=== PATIENT | female | born 1930 | race African-American/Black ===

== ENCOUNTER 2017-02-24 19:03 | Inpatient (IN) | payer MEDICARE, BC ==
[~2017-02-24] VITALS: Ht 162.6 cm; Wt 90.7 kg
[~2017-02-24 19:03] MED LIST: AZIL40TA PO
[2017-02-24] MEDS ORDERED: MECLIZINE 25MG TABLET PO ONE (19:30)
[2017-02-24] MEDS ORDERED: ASPIRIN 81MG TABLET PO ONE (19:30)
[2017-02-24 19:47] LABS: INR 1.1; PARTIAL THROMBOPLASTIN TIME 25.4 sec (23.4-31.0); PROTHROMBIN TIME 11.6 sec (9.4-11.6)
[2017-02-24 19:51] LABS: BASOPHILS % 0.3 % (0.0-2.0); EOSINOPHILS % 0.8 % (0.0-5.0); HEMATOCRIT. 41.8 % (36.0-48.0); HEMOGLOBIN. 14.1 g/dL (12.0-16.0); LYMPHOCYTES % 25.4 % (20.0-50.0); MEAN CORPUSCULAR HEMOGLOBIN 32.3 pg (28.0-32.0); MEAN CORPUSCULAR VOLUME 95.4 fL (81.0-99.0); MEAN PLATELET VOLUME 10.6 fl (7.4-10.4); MONOCYTES % 7.1 % (2.0-8.0); NEUTROPHILS % 66.4 % (40.0-76.0); PLATELET 187 x1000/uL (130-400); RED BLOOD CELL COUNT 4.38 mill/uL (4.2-5.4); RED CELL DISTRIBUTION WIDTH 12.9 % (11.6-14.6)
[2017-02-24 19:57] LABS: CARBON DIOXIDE 28 mEq/L (21-32); CHLORIDE 106 mEq/L (98-107); ETHANOL BLOOD < 10 mg/dL; TROPONIN I < 0.02 ng/mL (0.00-0.04)
[2017-02-24 20:44] LABS: CLARITY URINE CLEAR (CLEAR); COLOR URINE YELLOW (YELLOW); KETONES URINE TRACE (NEGATIVE); LEUKOCYTE ESTERASE URINE 1+ (NEGATIVE); NITRITE URINE NEGATIVE (NEGATIVE); OCCULT BLOOD URINE NEGATIVE (NEGATIVE); PROTEIN URINE NEGATIVE (NEGATIVE); SPECIFIC GRAVITY URINE 1.015 (1.005-1.030); UROBILINOGEN URINE 0.2 E.U./dL (0.2-1.0)
[2017-02-24 21:00] LABS: *AMPHETAMINES SCREEN URINE NEGATIVE (NEGATIVE); *BARBITURATES SCREEN URINE NEGATIVE (NEGATIVE); *BENZODIAZEPINES SCREEN URINE NEGATIVE (NEGATIVE); *COCAINE SCREEN URINE NEGATIVE (NEGATIVE); CANNABINOID URINE SCREEN NEGATIVE (NEGATIVE); METHADONE URINE SCREEN NEGATIVE (NEGATIVE); OPIATES URINE SCREEN NEGATIVE (NEGATIVE); PHENCYCLIDINE URINE SCREEN NEGATIVE (NEGATIVE)
[2017-02-25] VITALS (7 sets, daily range): BP systolic 137–174; BP diastolic 69–83
[2017-02-25] MEDS ORDERED: CEFTRIAXONE 1 G PREMIX 50 ML IV NR (00:15)
[2017-02-25] MEDS ORDERED: MECLIZINE 25MG TABLET PO PRN (03:15)
[2017-02-25] MEDS ORDERED: ONDANSETRON HCL 4MG/2ML VIAL IV PRN (03:15)
[2017-02-25] MEDS ORDERED: DOCUSATE SODIUM 100MG CAPSULE PO PRN (03:15)
[2017-02-25] MEDS ORDERED: GUAIFENESIN 200MG/10ML SUGAR FREE UDC PO PRN (03:15)
[2017-02-25] MEDS ORDERED: OLME20TA14 PO (04:14)
[2017-02-25] MEDS ORDERED: CYAN10009 PO (04:14)
[2017-02-25] MEDS ORDERED: CILO100T PO (04:14)
[2017-02-25] MEDS ORDERED: CLON0.1T PO (04:14)
[2017-02-25] MEDS: ACETAMINOPHEN 325MG TABLET PO PRN ×3 (04:56→23:42)
[2017-02-25] MEDS: CLONIDINE 0.1MG TABLET PO PRN (04:56)
[2017-02-25 07:46] LABS: CHLORIDE 109 mEq/L (98-107)
[2017-02-25 07:58] LABS: CARBON DIOXIDE 21 mEq/L (21-32); CREATINE KINASE 91 IU/L (26-192); TROPONIN I < 0.02 ng/mL (0.00-0.04)
[2017-02-25] MEDS: AMLODIPINE 10MG TABLET PO SCH (08:54)
[2017-02-25] MEDS: ASPIRIN 81MG EC TABLET PO SCH (08:54)
[2017-02-25] MEDS: ENOXAPARIN 30MG/0.3ML SYR SUBCUT SCH ×2 (08:54→21:00)
[2017-02-25] MEDS: DOCUSATE SODIUM 100MG CAPSULE PO SCH ×2 (13:23→17:21)
[2017-02-25] MEDS: CEFTRIAXONE 1 G PREMIX 50 ML IV SCH (14:00)
[2017-02-25 16:39] LABS: CREATINE KINASE 110 IU/L (26-192); TROPONIN I < 0.02 ng/mL (0.00-0.04)
[2017-02-25] MEDS ORDERED: MAGNESIUM OXIDE 400MG TABLET PO NR (17:09)
[2017-02-26] VITALS: BP 174/85
[2017-02-26 04:00] VITALS: BP 177/81
[2017-02-26] MEDS: CLONIDINE 0.1MG TABLET PO PRN (05:36)
[2017-02-26 06:32] LABS: BASOPHILS % 0.7 % (0.0-2.0); EOSINOPHILS % 1.4 % (0.0-5.0); HEMOGLOBIN. 13.4 g/dL (12.0-16.0); LYMPHOCYTES % 27.1 % (20.0-50.0); MEAN CORPUSCULAR HEMOGLOBIN 31.8 pg (28.0-32.0); MEAN CORPUSCULAR VOLUME 95.1 fL (81.0-99.0); MEAN PLATELET VOLUME 10.7 fl (7.4-10.4); MONOCYTES % 7.7 % (2.0-8.0); NEUTROPHILS % 63.1 % (40.0-76.0); PLATELET 169 x1000/uL (130-400); RED BLOOD CELL COUNT 4.21 mill/uL (4.2-5.4); RED CELL DISTRIBUTION WIDTH 12.9 % (11.6-14.6)
[2017-02-26 08:00] VITALS: BP 143/75
[2017-02-26] MEDS: ACETAMINOPHEN 325MG TABLET PO PRN (08:52)
[2017-02-26] MEDS: ENOXAPARIN 30MG/0.3ML SYR SUBCUT SCH (08:52)
[2017-02-26] MEDS: AMLODIPINE 10MG TABLET PO SCH (08:52)
[2017-02-26] MEDS: ASPIRIN 81MG EC TABLET PO SCH (08:52)
[2017-02-26] MEDS: DOCUSATE SODIUM 100MG CAPSULE PO SCH (09:00)
[2017-02-26 11:25] VITALS: BP 143/75
[2017-02-26 11:30] LABS: T4 FREE 1.14 ng/dL (0.76-1.46)
[2017-02-26] MEDS: CEFTRIAXONE 1 G PREMIX 50 ML IV SCH (11:47)
[2017-02-26 12:00] VITALS: BP 161/75
== END 2017-02-26 14:30 | disposition home or self-care (01) | DRG 690 ==
LOC: ER 19:35 → 6WST 02-25 01:14 → EDBEDREQTM 02-25 01:37 → EDBEDREQ 02-25 01:37 → EDBEDREQDT 02-25 01:37 → ENRESERV 02-25 01:46 → SUPCPDRO 02-25 03:13
PROVIDERS: ADMIT Hospitalist; ATTEND Hospitalist
DX: N39.0 Urinary tract infection, site not specified (principal); E78.00 Pure hypercholesterolemia, unspecified; E78.5 Hyperlipidemia, unspecified; G89.29 Other chronic pain; I10 Essential (primary) hypertension; I25.10 Atherosclerotic heart disease of native coronary artery without angina pectoris; Z96.649 Presence of unspecified artificial hip joint; M25.552 Pain in left hip; Z88.2 Allergy status to sulfonamides; Z95.0 Presence of cardiac pacemaker; Z91.041 Radiographic dye allergy status
CPT/HCPCS: 36415; 70450; 71010; 80048; 80053; 80061; 80305; 81001; 82550; 83735; 83880; 84439; 84443; 84484; 85025; 85610; 85730; 87086; 87186; 87804; 93005; 93970; 96365; 99285; A6261; G0482; J0696; J1650; J7040; J8597

== ENCOUNTER 2018-07-03 11:21 | Inpatient (IN) | payer MEDICARE, BC ==
[~2018-07-03] VITALS: Ht 170.2 cm; Wt 87.2 kg
[~2018-07-03 11:21] MED LIST changes: +BENADRYL; +CILO100T PO; +CLON0.1T PO; +CYAN10009 PO; +NITROFURANTOIN; +OLME20TA14 PO
[2018-07-03 12:41] VITALS: BP 186/82
[2018-07-03] MEDS ORDERED: FURO-151 MT (13:04)
[2018-07-03] MEDS ORDERED: TYLENOL # 3 PO (13:04)
[2018-07-03] MEDS ORDERED: CLONIDINE 0.2MG TABLET PO PRN ×2 (14:00)
[2018-07-03] MEDS ORDERED: TRAMADOL 50MG TABLET PO PRN (14:00)
[2018-07-03 15:38] LABS: CLARITY URINE CLEAR (CLEAR); COLOR URINE YELLOW (YELLOW); KETONES URINE NEGATIVE (NEGATIVE); LEUKOCYTE ESTERASE URINE NEGATIVE (NEGATIVE); NITRITE URINE NEGATIVE (NEGATIVE); OCCULT BLOOD URINE NEGATIVE (NEGATIVE); PROTEIN URINE NEGATIVE (NEGATIVE); SPECIFIC GRAVITY URINE 1.012 (1.005-1.030); UROBILINOGEN URINE 0.2 E.U./dL (0.2-1.0)
[2018-07-03 15:43] LABS: BASOPHILS % 0.7 % (0.0-2.0); CHLORIDE 110 mEq/L (98-107); EOSINOPHILS % 0.9 % (0.0-5.0); HEMATOCRIT. 39.2 % (36.0-48.0); LYMPHOCYTES % 30.5 % (20.0-50.0); MEAN CORPUSCULAR HEMOGLOBIN 31.6 pg (28.0-32.0); MEAN CORPUSCULAR VOLUME 95.4 fL (81.0-99.0); MEAN PLATELET VOLUME 10.2 fl (7.4-10.4); MONOCYTES % 7.3 % (2.0-8.0); NEUTROPHILS % 60.6 % (40.0-76.0); PLATELET 172 x1000/uL (130-400); RED BLOOD CELL COUNT 4.11 mill/uL (4.2-5.4); RED CELL DISTRIBUTION WIDTH 13.4 % (11.6-14.6)
[2018-07-03 16:00] VITALS: BP 151/78
[2018-07-03] MEDS ORDERED: VANCOMYCIN 1 G PREMIX 200 ML IV SCH (16:00)
[2018-07-03] MEDS: DOCUSATE SODIUM 100MG CAPSULE PO SCH (16:22)
[2018-07-03] MEDS: ASPIRIN 81MG EC TABLET PO SCH (16:22)
[2018-07-03] MEDS: CLONIDINE 0.1MG TABLET PO PRN (16:22)
[2018-07-03] MEDS: FUROSEMIDE 40MG/4ML VIAL IVP SCH (16:22)
[2018-07-03] MEDS: LOSARTAN POTASSIUM 25 MG TABLET PO SCH (16:30)
[2018-07-03] MEDS ORDERED: MAGNESIUM/ALUMINUM HYDROXIDE/SIMETHICONE 30ML UDC PO PRN (17:30)
[2018-07-03] MEDS ORDERED: CLONIDINE 0.1MG TABLET PO PRN (17:30)
[2018-07-03] MEDS ORDERED: GUAIFENESIN 200MG/10ML SUGAR FREE UDC PO PRN (17:30)
[2018-07-03] MEDS ORDERED: ACETAMINOPHEN 325MG TABLET PO PRN (17:30)
[2018-07-03] MEDS ORDERED: DOCUSATE SODIUM 100MG CAPSULE PO PRN (17:30)
[2018-07-03] MEDS ORDERED: ONDANSETRON HCL 4MG/2ML INJ IV PRN (17:30)
[2018-07-03] MEDS ORDERED: DIPHENHYDRAMINE 50MG/ML VIAL IV PRN (17:30)
[2018-07-03 18:00] VITALS: BP 148/84
[2018-07-03] MEDS ORDERED: ACETAMINOPHEN WITH CODEINE 300/60MG TABLET PO NR (18:00)
[2018-07-03] MEDS ORDERED: LEVOFLOXACIN 500MG PREMIX 100 ML IV NR (20:00)
[2018-07-03 20:21] VITALS: BP 166/77
[2018-07-03] MEDS: HYDROCODONE/ACETAMINOPHEN 5/325MG TABLET PO PRN (20:30)
[2018-07-03 22:00] VITALS: BP 128/54
[2018-07-04] VITALS (14 sets, daily range): BP systolic 122–176; BP diastolic 53–88
[2018-07-04] MEDS: HYDROCODONE/ACETAMINOPHEN 5/325MG TABLET PO PRN ×3 (02:29→23:18)
[2018-07-04 05:44] LABS: BASOPHILS % 0.4 % (0.0-2.0); EOSINOPHILS % 1.5 % (0.0-5.0); HEMATOCRIT. 34.3 % (36.0-48.0); HEMOGLOBIN. 11.5 g/dL (12.0-16.0); LYMPHOCYTES % 35.6 % (20.0-50.0); MEAN CORPUSCULAR HEMOGLOBIN 31.8 pg (28.0-32.0); MEAN CORPUSCULAR VOLUME 94.6 fL (81.0-99.0); MONOCYTES % 7.6 % (2.0-8.0); NEUTROPHILS % 54.9 % (40.0-76.0); PLATELET 162 x1000/uL (130-400); RED BLOOD CELL COUNT 3.63 mill/uL (4.2-5.4); RED CELL DISTRIBUTION WIDTH 13.1 % (11.6-14.6)
[2018-07-04 06:15] LABS: CHLORIDE 110 mEq/L (98-107)
[2018-07-04] MEDS: DOCUSATE SODIUM 100MG CAPSULE PO SCH ×2 (08:59→17:00)
[2018-07-04] MEDS: FUROSEMIDE 40MG/4ML VIAL IVP SCH (08:59)
[2018-07-04] MEDS: ASPIRIN 81MG EC TABLET PO SCH (09:00)
[2018-07-04] MEDS: LOSARTAN POTASSIUM 25 MG TABLET PO SCH ×2 (09:01→17:00)
[2018-07-04] MEDS ORDERED: ENOXAPARIN 30MG/0.3ML SYR SUBCUT SCH (12:00)
[2018-07-04] MEDS: VANCOMYCIN 1 G PREMIX 200 ML IV SCH (12:42)
[2018-07-04] MEDS ORDERED: LACTULOSE 20G/30ML UDC PO PRN (17:30)
[2018-07-04] MEDS ORDERED: LACTULOSE 20G/30ML UDC PO NR (21:00)
[2018-07-04] MEDS: LEVOFLOXACIN 250MG PREMIX 50 ML IV SCH (21:52)
[2018-07-05] VITALS (18 sets, daily range): BP systolic 123–176; BP diastolic 52–85
[2018-07-05] MEDS: CLONIDINE 0.1MG TABLET PO PRN (05:32)
[2018-07-05] MEDS: HYDROCODONE/ACETAMINOPHEN 5/325MG TABLET PO PRN ×4 (05:37→21:59)
[2018-07-05 06:48] LABS: BASOPHILS % 0.2 % (0.0-2.0); EOSINOPHILS % 1.7 % (0.0-5.0); HEMATOCRIT. 37.1 % (36.0-48.0); HEMOGLOBIN. 12.5 g/dL (12.0-16.0); LYMPHOCYTES % 30.6 % (20.0-50.0); MEAN CORPUSCULAR HEMOGLOBIN 32.1 pg (28.0-32.0); MEAN PLATELET VOLUME 10.4 fl (7.4-10.4); MONOCYTES % 8.2 % (2.0-8.0); NEUTROPHILS % 59.3 % (40.0-76.0); PLATELET 159 x1000/uL (130-400); RED CELL DISTRIBUTION WIDTH 13.3 % (11.6-14.6)
[2018-07-05 07:33] LABS: CHLORIDE 105 mEq/L (98-107)
[2018-07-05] MEDS: FUROSEMIDE 40MG/4ML VIAL IVP SCH (08:16)
[2018-07-05] MEDS: ENOXAPARIN 40MG/0.4ML SYR SUBCUT SCH (08:17)
[2018-07-05] MEDS: ASPIRIN 81MG EC TABLET PO SCH (08:17)
[2018-07-05] MEDS: POLYETHYLENE GLYCOL 3350 (17GM) 1 DOSE PACK PO SCH ×2 (08:17→08:27)
[2018-07-05] MEDS: DOCUSATE SODIUM 100MG CAPSULE PO SCH ×2 (08:17→16:14)
[2018-07-05] MEDS: LOSARTAN POTASSIUM 25 MG TABLET PO SCH (08:17)
[2018-07-05] MEDS ORDERED: DIPHENHYDRAMINE 25MG CAPSULE PO PRN (10:30)
[2018-07-05] MEDS: VANCOMYCIN 1 G PREMIX 200 ML IV SCH (12:37)
[2018-07-05] MEDS: LEVOFLOXACIN 250MG PREMIX 50 ML IV SCH (20:01)
[2018-07-05] MEDS: LOSARTAN POTASSIUM 50 MG TABLET PO SCH (22:05)
[2018-07-06] VITALS (15 sets, daily range): BP systolic 118–172; BP diastolic 36–98
[2018-07-06] MEDS: HYDROCODONE/ACETAMINOPHEN 5/325MG TABLET PO PRN ×2 (03:28→08:32)
[2018-07-06 06:21] LABS: BASOPHILS % 0.3 % (0.0-2.0); EOSINOPHILS % 1.4 % (0.0-5.0); HEMATOCRIT. 36.7 % (36.0-48.0); HEMOGLOBIN. 12.4 g/dL (12.0-16.0); LYMPHOCYTES % 25.3 % (20.0-50.0); MEAN CORPUSCULAR HEMOGLOBIN 32.3 pg (28.0-32.0); MEAN CORPUSCULAR VOLUME 95.5 fL (81.0-99.0); MEAN PLATELET VOLUME 10.5 fl (7.4-10.4); MONOCYTES % 8.8 % (2.0-8.0); NEUTROPHILS % 64.2 % (40.0-76.0); PLATELET 158 x1000/uL (130-400); RED BLOOD CELL COUNT 3.84 mill/uL (4.2-5.4); RED CELL DISTRIBUTION WIDTH 13.3 % (11.6-14.6)
[2018-07-06 07:46] LABS: CHLORIDE 105 mEq/L (98-107)
[2018-07-06] MEDS: ENOXAPARIN 40MG/0.4ML SYR SUBCUT SCH (08:29)
[2018-07-06] MEDS: LOSARTAN POTASSIUM 50 MG TABLET PO SCH (08:30)
[2018-07-06] MEDS: POLYETHYLENE GLYCOL 3350 (17GM) 1 DOSE PACK PO SCH ×2 (08:30→09:00)
[2018-07-06] MEDS: DOCUSATE SODIUM 100MG CAPSULE PO SCH ×2 (08:31→16:17)
[2018-07-06] MEDS: ASPIRIN 81MG EC TABLET PO SCH (08:33)
[2018-07-06] MEDS ORDERED: VANCOMYCIN 750 MG PREMIX 150 ML IV SCH (10:00)
[2018-07-06] MEDS: FUROSEMIDE 40MG/4ML VIAL IVP SCH (10:03)
[2018-07-06] MEDS ORDERED: HYDROCODONE/APAP 7.5/325MG 1 TAB TABLET PO PRN ×2 (10:45→16:45)
[2018-07-06] MEDS ORDERED: ZOLPIDEM TARTRATE 5MG TABLET PO PRN (10:45)
[2018-07-06] MEDS ORDERED: LEVOFLOXACIN 250MG TABLET PO SCH (20:00)
== END 2018-07-06 18:23 | DRG 603 ==
LOC: 3WST 11:21
PROVIDERS: ADMIT Hospitalist; ATTEND Hospitalist
DX: L03.116 Cellulitis of left lower limb (principal); E44.1 Mild protein-calorie malnutrition; L03.115 Cellulitis of right lower limb; I48.0 Paroxysmal atrial fibrillation; I73.9 Peripheral vascular disease, unspecified; I49.5 Sick sinus syndrome; I65.22 Occlusion and stenosis of left carotid artery; I10 Essential (primary) hypertension; I89.0 Lymphedema, not elsewhere classified; I25.10 Atherosclerotic heart disease of native coronary artery without angina pectoris; K59.00 Constipation, unspecified; Z95.0 Presence of cardiac pacemaker; Z68.30 Body mass index [BMI] 30.0-30.9, adult
CPT/HCPCS: 36415; 71045; 74018; 80048; 80202; 83735; 84443; 93005; 93970; 97162; J1650; J1940; J1956; J3370; J7050; Q0163; A4315

== ENCOUNTER 2018-07-06 18:30 | Inpatient (IN) | payer MEDICARE, BC ==
[~2018-07-06] VITALS: Ht 170.2 cm; Wt 87.2 kg
[~2018-07-06 18:30] MED LIST changes: -AZIL40TA PO; -BENADRYL; -CILO100T PO; -CYAN10009 PO; +FURO-151 MT; -NITROFURANTOIN; +TYLENOL # 3 PO
[2018-07-06 20:00] VITALS: BP 165/73
[2018-07-06] MEDS ORDERED: DIPHENHYDRAMINE 50MG/ML VIAL IV PRN (20:15)
[2018-07-06] MEDS ORDERED: DIPHENHYDRAMINE 25MG CAPSULE PO PRN (20:15)
[2018-07-06] MEDS ORDERED: CLONIDINE 0.2MG TABLET PO PRN (20:15)
[2018-07-06] MEDS ORDERED: CLONIDINE 0.1MG TABLET PO PRN (20:15)
[2018-07-06] MEDS ORDERED: GUAIFENESIN 200MG/10ML SUGAR FREE UDC PO PRN (20:15)
[2018-07-06] MEDS ORDERED: ONDANSETRON HCL 4MG/2ML INJ IV PRN (20:15)
[2018-07-06] MEDS ORDERED: LACTULOSE 20G/30ML UDC PO PRN (20:15)
[2018-07-06] MEDS ORDERED: LEVOFLOXACIN 250MG PREMIX 50 ML IV SCH (20:15)
[2018-07-06] MEDS ORDERED: DOCUSATE SODIUM 100MG CAPSULE PO PRN (20:15)
[2018-07-06] MEDS ORDERED: MAGNESIUM/ALUMINUM HYDROXIDE/SIMETHICONE 30ML UDC PO PRN (20:15)
[2018-07-06] MEDS: HYDROCODONE/APAP 7.5/325MG 1 TAB TABLET PO PRN (22:11)
[2018-07-06] MEDS: LOSARTAN POTASSIUM 50 MG TABLET PO SCH (22:11)
[2018-07-06] MEDS: VANCOMYCIN 750 MG PREMIX 150 ML IV SCH (22:45)
[2018-07-06] MEDS: LEVOFLOXACIN 250MG TABLET PO SCH (22:51)
[2018-07-07 08:00] VITALS: BP 155/64
[2018-07-07] MEDS: POLYETHYLENE GLYCOL 3350 (17GM) 1 DOSE PACK PO SCH (09:53)
[2018-07-07] MEDS: ASPIRIN 81MG EC TABLET PO SCH (09:54)
[2018-07-07] MEDS: LOSARTAN POTASSIUM 50 MG TABLET PO SCH ×2 (09:54→21:28)
[2018-07-07] MEDS: FUROSEMIDE 40MG/4ML VIAL IVP SCH (09:54)
[2018-07-07] MEDS: DOCUSATE SODIUM 100MG CAPSULE PO SCH ×2 (09:54→17:00)
[2018-07-07] MEDS: ENOXAPARIN 40MG/0.4ML SYR SUBCUT SCH (09:55)
[2018-07-07] MEDS: VANCOMYCIN 750 MG PREMIX 150 ML IV SCH ×2 (09:55→21:31)
[2018-07-07 13:58] LABS: BASOPHILS % 0.4 % (0.0-2.0); EOSINOPHILS % 1.3 % (0.0-5.0); HEMATOCRIT. 41.4 % (36.0-48.0); HEMOGLOBIN. 13.7 g/dL (12.0-16.0); LYMPHOCYTES % 19.3 % (20.0-50.0); MEAN CORPUSCULAR HEMOGLOBIN 31.6 pg (28.0-32.0); MEAN CORPUSCULAR VOLUME 95.8 fL (81.0-99.0); MEAN PLATELET VOLUME 10.6 fl (7.4-10.4); MONOCYTES % 5.9 % (2.0-8.0); NEUTROPHILS % 73.1 % (40.0-76.0); PLATELET 179 x1000/uL (130-400); RED BLOOD CELL COUNT 4.33 mill/uL (4.2-5.4); RED CELL DISTRIBUTION WIDTH 13.1 % (11.6-14.6)
[2018-07-07 14:04] LABS: CHLORIDE 105 mEq/L (98-107)
[2018-07-07 20:00] VITALS: BP 151/65
[2018-07-07] MEDS: HYDROCODONE/APAP 7.5/325MG 1 TAB TABLET PO PRN (21:28)
[2018-07-07] MEDS: LEVOFLOXACIN 250MG TABLET PO SCH (21:28)
[2018-07-08] MEDS: HYDROCODONE/APAP 7.5/325MG 1 TAB TABLET PO PRN ×3 (03:27→20:27)
[2018-07-08 08:00] VITALS: BP 125/56
[2018-07-08] MEDS: POLYETHYLENE GLYCOL 3350 (17GM) 1 DOSE PACK PO SCH (09:00)
[2018-07-08] MEDS: LOSARTAN POTASSIUM 50 MG TABLET PO SCH ×2 (10:17→20:27)
[2018-07-08] MEDS: DOCUSATE SODIUM 100MG CAPSULE PO SCH ×2 (10:18→17:31)
[2018-07-08] MEDS: ASPIRIN 81MG EC TABLET PO SCH (10:18)
[2018-07-08] MEDS: ENOXAPARIN 40MG/0.4ML SYR SUBCUT SCH (10:19)
[2018-07-08] MEDS: FUROSEMIDE 40MG/4ML VIAL IVP SCH (10:19)
[2018-07-08] MEDS: VANCOMYCIN 750 MG PREMIX 150 ML IV SCH (10:20)
[2018-07-08 20:00] VITALS: BP 135/58
[2018-07-08] MEDS: LEVOFLOXACIN 250MG TABLET PO SCH (20:27)
[2018-07-09] MEDS: ACETAMINOPHEN 325MG TABLET PO PRN (01:20)
[2018-07-09] MEDS: HYDROCODONE/APAP 7.5/325MG 1 TAB TABLET PO PRN (02:48)
[2018-07-09 08:00] VITALS: BP 127/54
[2018-07-09 08:37] LABS: CHLORIDE 104 mEq/L (98-107)
[2018-07-09] MEDS: LOSARTAN POTASSIUM 50 MG TABLET PO SCH ×2 (10:02→20:41)
[2018-07-09] MEDS: DOCUSATE SODIUM 100MG CAPSULE PO SCH ×2 (10:02→17:00)
[2018-07-09] MEDS: ASPIRIN 81MG EC TABLET PO SCH (10:02)
[2018-07-09] MEDS: FUROSEMIDE 40MG TABLET PO SCH (10:02)
[2018-07-09] MEDS: ENOXAPARIN 40MG/0.4ML SYR SUBCUT SCH (10:03)
[2018-07-09] MEDS: POLYETHYLENE GLYCOL 3350 (17GM) 1 DOSE PACK PO SCH (10:03)
[2018-07-09] MEDS: TRAMADOL 50MG TABLET PO PRN ×2 (11:04→21:45)
[2018-07-09 20:00] VITALS: BP 153/64
[2018-07-09] MEDS: LEVOFLOXACIN 250MG TABLET PO SCH (20:41)
[2018-07-10] MEDS: ACETAMINOPHEN 325MG TABLET PO PRN ×3 (01:46→22:15)
[2018-07-10 08:00] VITALS: BP 126/55
[2018-07-10] MEDS: POLYETHYLENE GLYCOL 3350 (17GM) 1 DOSE PACK PO SCH (09:00)
[2018-07-10] MEDS: ASPIRIN 81MG EC TABLET PO SCH (09:38)
[2018-07-10] MEDS: FUROSEMIDE 40MG TABLET PO SCH (09:38)
[2018-07-10] MEDS: TRAMADOL 50MG TABLET PO PRN ×2 (09:38→18:02)
[2018-07-10] MEDS: LOSARTAN POTASSIUM 50 MG TABLET PO SCH ×2 (09:38→21:04)
[2018-07-10] MEDS: DOCUSATE SODIUM 100MG CAPSULE PO SCH ×2 (09:39→17:59)
[2018-07-10] MEDS: ENOXAPARIN 40MG/0.4ML SYR SUBCUT SCH (09:40)
[2018-07-10] MEDS ORDERED: HYDROCODONE/APAP 7.5/325MG 1 TAB TABLET PO PRN (10:30)
[2018-07-10 20:00] VITALS: BP 135/51
[2018-07-10] MEDS: LEVOFLOXACIN 250MG TABLET PO SCH (21:04)
[2018-07-11 08:00] VITALS: BP 96/42
[2018-07-11] MEDS: DOCUSATE SODIUM 100MG CAPSULE PO SCH ×2 (08:42→16:15)
[2018-07-11] MEDS: ASPIRIN 81MG EC TABLET PO SCH (08:42)
[2018-07-11] MEDS: FUROSEMIDE 40MG TABLET PO SCH (08:42)
[2018-07-11] MEDS: ENOXAPARIN 40MG/0.4ML SYR SUBCUT SCH (08:43)
[2018-07-11] MEDS: LOSARTAN POTASSIUM 50 MG TABLET PO SCH ×2 (08:43→21:25)
[2018-07-11] MEDS: POLYETHYLENE GLYCOL 3350 (17GM) 1 DOSE PACK PO SCH (08:59)
[2018-07-11] MEDS: TRAMADOL 50MG TABLET PO PRN ×2 (09:01→18:05)
[2018-07-11 20:00] VITALS: BP 174/81
[2018-07-11] MEDS: LEVOFLOXACIN 250MG TABLET PO SCH (21:25)
[2018-07-11] MEDS: ACETAMINOPHEN 325MG TABLET PO PRN (21:51)
[2018-07-12] MEDS: TRAMADOL 50MG TABLET PO PRN ×3 (00:49→21:14)
[2018-07-12] MEDS: DOCUSATE SODIUM 100MG CAPSULE PO SCH ×2 (08:48→17:00)
[2018-07-12] MEDS: ASPIRIN 81MG EC TABLET PO SCH (08:48)
[2018-07-12] MEDS: FUROSEMIDE 40MG TABLET PO SCH (08:48)
[2018-07-12] MEDS: LOSARTAN POTASSIUM 50 MG TABLET PO SCH ×2 (08:48→21:05)
[2018-07-12] MEDS: ENOXAPARIN 40MG/0.4ML SYR SUBCUT SCH (08:49)
[2018-07-12] MEDS: POLYETHYLENE GLYCOL 3350 (17GM) 1 DOSE PACK PO SCH (08:49)
[2018-07-12 08:51] VITALS: BP 145/60
[2018-07-12] MEDS: ACETAMINOPHEN 500MG TABLET PO PRN ×2 (18:19→23:43)
[2018-07-12 20:00] VITALS: BP 137/49
[2018-07-12] MEDS: LEVOFLOXACIN 250MG TABLET PO SCH (21:05)
[2018-07-13] MEDS: TRAMADOL 50MG TABLET PO PRN ×3 (05:27→19:35)
[2018-07-13 06:28] LABS: BASOPHILS % 0.5 % (0.0-2.0); EOSINOPHILS % 1.5 % (0.0-5.0); HEMATOCRIT. 34.6 % (36.0-48.0); HEMOGLOBIN. 11.5 g/dL (12.0-16.0); LYMPHOCYTES % 36.9 % (20.0-50.0); MEAN CORPUSCULAR HEMOGLOBIN 31.9 pg (28.0-32.0); MEAN CORPUSCULAR VOLUME 95.8 fL (81.0-99.0); MEAN PLATELET VOLUME 10.2 fl (7.4-10.4); MONOCYTES % 9.2 % (2.0-8.0); NEUTROPHILS % 51.9 % (40.0-76.0); PLATELET 186 x1000/uL (130-400); RED BLOOD CELL COUNT 3.61 mill/uL (4.2-5.4); RED CELL DISTRIBUTION WIDTH 13.4 % (11.6-14.6)
[2018-07-13 07:31] LABS: CHLORIDE 108 mEq/L (98-107)
[2018-07-13 08:36] VITALS: BP 121/51
[2018-07-13] MEDS: FUROSEMIDE 40MG TABLET PO SCH (08:45)
[2018-07-13] MEDS: LOSARTAN POTASSIUM 50 MG TABLET PO SCH ×2 (08:45→20:49)
[2018-07-13] MEDS: DOCUSATE SODIUM 100MG CAPSULE PO SCH ×2 (08:46→17:13)
[2018-07-13] MEDS: ENOXAPARIN 40MG/0.4ML SYR SUBCUT SCH (08:46)
[2018-07-13] MEDS: ASPIRIN 81MG EC TABLET PO SCH (08:46)
[2018-07-13] MEDS: POLYETHYLENE GLYCOL 3350 (17GM) 1 DOSE PACK PO SCH (08:46)
[2018-07-13] MEDS: ACETAMINOPHEN 500MG TABLET PO PRN ×2 (14:31→23:46)
[2018-07-13 20:00] VITALS: BP 162/69
[2018-07-13] MEDS: LEVOFLOXACIN 250MG TABLET PO SCH (20:49)
[2018-07-14 03:55] VITALS: BP 124/53
[2018-07-14] MEDS: TRAMADOL 50MG TABLET PO PRN ×2 (03:55→18:37)
[2018-07-14 08:00] VITALS: BP 115/55
[2018-07-14] MEDS: LOSARTAN POTASSIUM 50 MG TABLET PO SCH ×2 (09:00→20:37)
[2018-07-14] MEDS: DOCUSATE SODIUM 100MG CAPSULE PO SCH ×2 (09:35→18:36)
[2018-07-14] MEDS: ASPIRIN 81MG EC TABLET PO SCH (09:35)
[2018-07-14] MEDS: POLYETHYLENE GLYCOL 3350 (17GM) 1 DOSE PACK PO SCH (09:35)
[2018-07-14] MEDS: FUROSEMIDE 40MG TABLET PO SCH (09:35)
[2018-07-14] MEDS: ENOXAPARIN 40MG/0.4ML SYR SUBCUT SCH (09:39)
[2018-07-14] MEDS: ACETAMINOPHEN 500MG TABLET PO PRN (11:35)
[2018-07-14 20:00] VITALS: BP 197/83
[2018-07-14 21:59] VITALS: BP 134/53
[2018-07-15 08:05] VITALS: BP 111/54
[2018-07-15] MEDS: POLYETHYLENE GLYCOL 3350 (17GM) 1 DOSE PACK PO SCH (08:39)
[2018-07-15] MEDS: FUROSEMIDE 40MG TABLET PO SCH (08:40)
[2018-07-15] MEDS: DOCUSATE SODIUM 100MG CAPSULE PO SCH ×2 (08:40→16:48)
[2018-07-15] MEDS: LOSARTAN POTASSIUM 50 MG TABLET PO SCH ×2 (08:40→22:16)
[2018-07-15] MEDS: ASPIRIN 81MG EC TABLET PO SCH (08:41)
[2018-07-15] MEDS: ENOXAPARIN 40MG/0.4ML SYR SUBCUT SCH (08:41)
[2018-07-15 10:31] VITALS: BP 140/62
[2018-07-15] MEDS: TRAMADOL 50MG TABLET PO PRN ×2 (10:33→17:24)
[2018-07-15 20:00] VITALS: BP 130/59
[2018-07-15] MEDS: ACETAMINOPHEN 500MG TABLET PO PRN (23:32)
[2018-07-16] MEDS: TRAMADOL 50MG TABLET PO PRN ×3 (06:13→20:56)
[2018-07-16 08:13] VITALS: BP 133/56
[2018-07-16] MEDS: DOCUSATE SODIUM 100MG CAPSULE PO SCH ×2 (08:56→16:12)
[2018-07-16] MEDS: FUROSEMIDE 40MG TABLET PO SCH (08:56)
[2018-07-16] MEDS: ASPIRIN 81MG EC TABLET PO SCH (08:56)
[2018-07-16] MEDS: POLYETHYLENE GLYCOL 3350 (17GM) 1 DOSE PACK PO SCH (08:56)
[2018-07-16] MEDS: ENOXAPARIN 40MG/0.4ML SYR SUBCUT SCH (08:57)
[2018-07-16] MEDS: LOSARTAN POTASSIUM 50 MG TABLET PO SCH ×2 (08:57→20:56)
[2018-07-16] MEDS: ACETAMINOPHEN 500MG TABLET PO PRN (16:13)
[2018-07-16 20:00] VITALS: BP 146/56
[2018-07-17] MEDS: ACETAMINOPHEN 500MG TABLET PO PRN ×2 (01:17→20:55)
[2018-07-17] MEDS: TRAMADOL 50MG TABLET PO PRN ×4 (05:58→23:09)
[2018-07-17 08:00] VITALS: BP 91/67
[2018-07-17] MEDS: DOCUSATE SODIUM 100MG CAPSULE PO SCH ×2 (08:56→16:59)
[2018-07-17] MEDS: ASPIRIN 81MG EC TABLET PO SCH (08:56)
[2018-07-17] MEDS: ENOXAPARIN 40MG/0.4ML SYR SUBCUT SCH (08:57)
[2018-07-17] MEDS: LOSARTAN POTASSIUM 50 MG TABLET PO SCH ×2 (08:57→20:54)
[2018-07-17] MEDS: FUROSEMIDE 40MG TABLET PO SCH (08:57)
[2018-07-17] MEDS: POLYETHYLENE GLYCOL 3350 (17GM) 1 DOSE PACK PO SCH (08:57)
[2018-07-17 20:00] VITALS: BP 144/54
[2018-07-17 21:55] VITALS: BP 132/66
[2018-07-18 00:37] VITALS: BP 129/72
[2018-07-18] MEDS: ACETAMINOPHEN 500MG TABLET PO PRN ×3 (05:09→23:25)
[2018-07-18 08:07] VITALS: BP 161/68
[2018-07-18] MEDS: LOSARTAN POTASSIUM 50 MG TABLET PO SCH ×2 (08:56→21:08)
[2018-07-18] MEDS: TRAMADOL 50MG TABLET PO PRN ×2 (08:57→13:52)
[2018-07-18] MEDS: DOCUSATE SODIUM 100MG CAPSULE PO SCH ×2 (08:57→16:21)
[2018-07-18] MEDS: FUROSEMIDE 40MG TABLET PO SCH (08:57)
[2018-07-18] MEDS: ASPIRIN 81MG EC TABLET PO SCH (08:57)
[2018-07-18] MEDS: ENOXAPARIN 40MG/0.4ML SYR SUBCUT SCH (08:58)
[2018-07-18] MEDS: POLYETHYLENE GLYCOL 3350 (17GM) 1 DOSE PACK PO SCH (08:58)
[2018-07-18 20:00] VITALS: BP 150/65
[2018-07-19] MEDS: TRAMADOL 50MG TABLET PO PRN ×2 (08:03→21:08)
[2018-07-19 08:38] VITALS: BP 100/64
[2018-07-19] MEDS: POLYETHYLENE GLYCOL 3350 (17GM) 1 DOSE PACK PO SCH (09:18)
[2018-07-19] MEDS: LOSARTAN POTASSIUM 50 MG TABLET PO SCH ×2 (09:19→21:01)
[2018-07-19] MEDS: ENOXAPARIN 40MG/0.4ML SYR SUBCUT SCH (09:19)
[2018-07-19] MEDS: ASPIRIN 81MG EC TABLET PO SCH (09:19)
[2018-07-19] MEDS: DOCUSATE SODIUM 100MG CAPSULE PO SCH ×2 (09:19→16:39)
[2018-07-19] MEDS: FUROSEMIDE 40MG TABLET PO SCH (09:19)
[2018-07-19] MEDS: ACETAMINOPHEN 500MG TABLET PO PRN (16:38)
[2018-07-19 20:00] VITALS: BP 140/51
[2018-07-20] MEDS: POLYETHYLENE GLYCOL 3350 (17GM) 1 DOSE PACK PO SCH ×2 (08:17→08:24)
[2018-07-20] MEDS: ENOXAPARIN 40MG/0.4ML SYR SUBCUT SCH (08:17)
[2018-07-20] MEDS: ASPIRIN 81MG EC TABLET PO SCH (08:18)
[2018-07-20] MEDS: DOCUSATE SODIUM 100MG CAPSULE PO SCH (08:18)
[2018-07-20] MEDS: FUROSEMIDE 40MG TABLET PO SCH (08:18)
[2018-07-20] MEDS: LOSARTAN POTASSIUM 50 MG TABLET PO SCH (08:18)
[2018-07-20] MEDS: TRAMADOL 50MG TABLET PO PRN (08:19)
[2018-07-20 08:25] VITALS: BP 153/63
[2018-07-20 12:00] VITALS: BP 159/82
[2018-07-20 12:11] VITALS: BP 159/82
== END 2018-07-20 13:45 | disposition home health service (06) | DRG 602 ==
PROVIDERS: ADMIT Psychiatry & Neurology Neurology; ATTEND Hospitalist
DX: L03.116 Cellulitis of left lower limb (principal); E43 Unspecified severe protein-calorie malnutrition; L97.919 Non-pressure chronic ulcer of unspecified part of right lower leg with unspecified severity; R53.81 Other malaise; L03.115 Cellulitis of right lower limb; I89.0 Lymphedema, not elsewhere classified; I65.22 Occlusion and stenosis of left carotid artery; I48.0 Paroxysmal atrial fibrillation; M13.0 Polyarthritis, unspecified; K59.00 Constipation, unspecified; J44.9 Chronic obstructive pulmonary disease, unspecified; I10 Essential (primary) hypertension; G89.29 Other chronic pain; F41.9 Anxiety disorder, unspecified; G62.9 Polyneuropathy, unspecified; I70.201 Unspecified atherosclerosis of native arteries of extremities, right leg; I70.202 Unspecified atherosclerosis of native arteries of extremities, left leg; Z95.0 Presence of cardiac pacemaker
CPT/HCPCS: 36415; 80048; 80202; 83735; 97110; 97116; 97150; 97162; 97167; 97530; 97535; 97542; A6261; C1893; J1650; J1940; J3370; J7040; Q0163

== ENCOUNTER → 2019-01-26 | Outpatient (CLI) | payer MEDICARE, BC ==
[~2019-01-26] MED LIST changes: +OLME20TA13 PO; -OLME20TA14 PO; -TYLENOL # 3 PO
== END | disposition home or self-care (01) ==
LOC: RAD 14:05
PROVIDERS: ATTEND Internal Medicine
DX: M16.12 Unilateral primary osteoarthritis, left hip (principal); M25.762 Osteophyte, left knee; M25.761 Osteophyte, right knee
CPT/HCPCS: 73502; 73565